=== PATIENT | male | born 1975 | race Caucasian/White ===

== ENCOUNTER → 2021-05-25 | Outpatient (CLI) | payer BC ==
[~2021-05-25] MED LIST: FLOMAX 0.40.4 MG/CAP PO; NO HOME MEDICATIONS; PERCOCET 325 MG1 TA2 PO; PHENERGAN 25 TA25 MG PO; PHENERGAN25 MG RC
== END ==
LOC: ZCOL.LAB 17:14
DX: U07.1 COVID-19 (principal)